=== PATIENT | female | born 1945 | race Caucasian/White ===

== ENCOUNTER → 2016-12-10 | Outpatient (CLI) | payer MEDICARE, OTHER ==
[~2016-12-10] MED LIST: ALLEGRA ALLERGY60 MG PO; ARICEPT PO; CELEBREX50 MG PO; DILTIAZEM HYDR120 M2 PO; DILTIAZEM120 MG PO; FLONASE NASAL S16 GM NS; GABAPENTIN100 MG PO; IFEREX 150 FORT1 CAP PO; MAGNESIUM ELEME30 MG PO; NATURE'S BLEND400 I1 PO; POTASSIUM CH2 MEQ/ML PO; PREMARIN0.3 MG PO; PRILOSEC 20MG20 MG PO; SAVELLA25 MG PO; SYNTHROID0.075 MG PO; VENTOLIN0.09 MG IH; VITAMIN B COMPL1 SGL PO; VITAMIN E 400 U4001 PO
== END ==
LOC: LAB 16:16
DX: D50.9 Iron deficiency anemia, unspecified (principal); R73.02 Impaired glucose tolerance (oral); E03.4 Atrophy of thyroid (acquired); I10 Essential (primary) hypertension; I25.10 Atherosclerotic heart disease of native coronary artery without angina pectoris; D64.89 Other specified anemias; R20.2 Paresthesia of skin

== ENCOUNTER → 2017-01-02 | Outpatient (CLI) | payer MEDICARE, OTHER | LOC: LAB 14:20 | DX: L03.032 Cellulitis of left toe (principal) ==

== ENCOUNTER → 2017-01-18 | Outpatient (CLI) | payer MEDICARE, OTHER | LOC: LAB 11:59 | DX: L03.032 Cellulitis of left toe (principal); B96.5 Pseudomonas (aeruginosa) (mallei) (pseudomallei) as the cause of diseases classified elsewhere ==

== ENCOUNTER → 2017-02-14 | Outpatient (CLI) | payer MEDICARE, OTHER ==
[2016-02-29 14:40] VITALS: BP 191/88
== END ==
LOC: LAB 13:38
DX: I25.10 Atherosclerotic heart disease of native coronary artery without angina pectoris (principal); E61.1 Iron deficiency

== ENCOUNTER → 2017-08-01 | Outpatient (CLI) | payer MEDICARE, OTHER ==
[2016-02-29 14:40] VITALS: BP 191/88
[2017-08-01 16:55] LABS: URINE WBC 0 /hpf (0-3)
[2017-08-01 17:39] LABS: EOS # 0.4 (0.04-0.40); EOS % 4.9 % (1.0-5.0); HEMATOCRIT 42.1 % (37.0-47.0); HEMOGLOBIN 13.7 g/dL (12.5-16.0); MEAN CELL VOLUME 93 fl (78-100); MEAN CORPUSCULAR HEMOGLOBIN 30 pg (27-31); MEAN CORPUSCULAR HGB CONC 33 g/dL (33-37); MEAN PLATELET VOLUME 10.1 fl (7.4-10.4); MONO # 0.7 (0.20-0.80); NEU # 5.5 (1.40-6.50); PLATELET COUNT 223 K/mm3 (130-400); RED BLOOD COUNT 4.52 M/mm3 (4.10-5.30); RED CELL DISTRIBUTION WIDTH 13.7 % (11.5-14.5); WHITE BLOOD COUNT 8.7 K/mm3 (4.8-10.8)
[2017-08-01 17:50] LABS: BUN/CREATININE RATIO 27.3 (6.0-26.0); CALCIUM 9.5 mg/dL (8.4-10.2); POTASSIUM 4.3 mmol/L (3.6-5.0); TOTAL BILIRUBIN 0.5 mg/dL (0.2-1.3); TOTAL PROTEIN 7.2 g/dL (6.3-8.2)
[2017-08-01 18:02] LABS: URINE APPEARANCE CLEAR; URINE BILIRUBIN NEGATIVE (NEGATIVE); URINE BLOOD NEGATIVE (NEGATIVE); URINE COLOR YELLOW; URINE GLUCOSE NEGATIVE (NEGATIVE); URINE KETONE NEGATIVE (NEGATIVE); URINE LEUKOCYTE ESTERASE NEGATIVE (NEGATIVE); URINE NITRATE NEGATIVE (NEGATIVE); URINE PROTEIN(semi-quant) NEGATIVE (NEGATIVE); URINE UROBILINOGEN NORMAL (NORMAL)
[2017-08-01 19:10] LABS: ERYTHROCYTE SEDIMENTATION RATE 18 mm/hr (0-30)
[2017-08-01 23:42] LABS: CREATININE OTHER SOURCE 64 mg/dL (())
== END ==
LOC: LAB 16:25
PROVIDERS: Internal Medicine
DX: I25.10 Atherosclerotic heart disease of native coronary artery without angina pectoris (principal); E61.1 Iron deficiency; R73.02 Impaired glucose tolerance (oral); E03.4 Atrophy of thyroid (acquired); M85.89 Other specified disorders of bone density and structure, multiple sites; Z12.11 Encounter for screening for malignant neoplasm of colon; I10 Essential (primary) hypertension

== ENCOUNTER → 2017-10-23 | Outpatient (CLI) | payer MEDICARE, OTHER ==
[2016-02-29 14:40] VITALS: BP 191/88
[2017-10-23 14:15] LABS: EOS # 0.2 (0.04-0.40); EOS % 2.1 % (1.0-5.0); HEMATOCRIT 41.5 % (37.0-47.0); HEMOGLOBIN 13.7 g/dL (12.5-16.0); LYMPH# 1.9 (1.50-4.00); MEAN CELL VOLUME 94 fl (78-100); MEAN CORPUSCULAR HEMOGLOBIN 31 pg (27-31); MEAN CORPUSCULAR HGB CONC 33 g/dL (33-37); MEAN PLATELET VOLUME 9.8 fl (7.4-10.4); MONO # 0.8 (0.20-0.80); NEU # 5.3 (1.40-6.50); PLATELET COUNT 224 K/mm3 (130-400); RED BLOOD COUNT 4.41 M/mm3 (4.10-5.30); RED CELL DISTRIBUTION WIDTH 13.8 % (11.5-14.5); WHITE BLOOD COUNT 8.2 K/mm3 (4.8-10.8)
[2017-10-23 14:31] LABS: ALBUMIN 4.2 g/dL (3.5-5.0); BUN/CREATININE RATIO 19.2 (6.0-26.0); CALCIUM 9.2 mg/dL (8.4-10.2); TOTAL BILIRUBIN 0.8 mg/dL (0.2-1.3); TOTAL PROTEIN 7.4 g/dL (6.3-8.2)
== END ==
LOC: RAD 14:01
PROVIDERS: Nurse Practitioner Primary Care
DX: R10.0 Acute abdomen (principal)
CPT/HCPCS: Q9967

== ENCOUNTER → 2017-11-27 | Outpatient (CLI) | payer MEDICARE, OTHER ==
[~2017-11-27] VITALS: Ht 160 cm; Wt 92.7 kg
[~2017-11-27] MED LIST changes: +AMLODIPINE BESYL5 MG PO; +FEXOFENADINE H180 M1 PO; +MUPIROCIN22 TP; +ULTRAM50 M1 PO; +VALTREX1 GM PO
[2017-11-27 13:15] LABS: EOS # 0.3 (0.04-0.40); HEMATOCRIT 43.5 % (37.0-47.0); HEMOGLOBIN 14.2 g/dL (12.5-16.0); LYMPH# 1.5 (1.50-4.00); MEAN CELL VOLUME 96 fl (78-100); MEAN CORPUSCULAR HEMOGLOBIN 31 pg (27-31); MEAN CORPUSCULAR HGB CONC 33 g/dL (33-37); MEAN PLATELET VOLUME 9.7 fl (7.4-10.4); MONO # 0.6 (0.20-0.80); NEU # 4.1 (1.40-6.50); PLATELET COUNT 216 K/mm3 (130-400); RED BLOOD COUNT 4.55 M/mm3 (4.10-5.30); RED CELL DISTRIBUTION WIDTH 14.9 % (11.5-14.5); WHITE BLOOD COUNT 6.5 K/mm3 (4.8-10.8)
[2017-11-27 13:24] LABS: ALBUMIN 4.3 g/dL (3.5-5.0); BUN/CREATININE RATIO 18.4 (6.0-26.0); CALCIUM 9.2 mg/dL (8.4-10.2); POTASSIUM 4.2 mmol/L (3.6-5.0); TOTAL BILIRUBIN 0.6 mg/dL (0.2-1.3); TOTAL PROTEIN 7.8 g/dL (6.3-8.2)
[2017-11-27 13:28] LABS: STREP SCREEN NEGATIVE (NEGATIVE)
[2017-11-27 13:31] LABS: PH-URINE 5.5 (5.0 - 8.0); URINE APPEARANCE CLEAR; URINE BILIRUBIN NEGATIVE (NEGATIVE); URINE BLOOD NEGATIVE (NEGATIVE); URINE COLOR YELLOW; URINE GLUCOSE NEGATIVE (NEGATIVE); URINE KETONE NEGATIVE (NEGATIVE); URINE LEUKOCYTE ESTERASE NEGATIVE (NEGATIVE); URINE NITRATE NEGATIVE (NEGATIVE); URINE PROTEIN(semi-quant) NEGATIVE (NEGATIVE); URINE UROBILINOGEN NORMAL (NORMAL)
[2017-11-27 13:39] LABS: URINE WBC 0-1 /hpf (0-3)
[2017-11-27 14:25] VITALS: BP 161/83
== END ==
LOC: AMSURD 12:46 → LAB 12:46
PROVIDERS: Physician Assistant
DX: R53.83 Other fatigue (principal); R30.0 Dysuria; J02.9 Acute pharyngitis, unspecified

== ENCOUNTER → 2017-12-31 | Outpatient (CLI) | payer MEDICARE, OTHER ==
[2017-11-27 14:25] VITALS: BP 161/83
[2017-12-31 15:12] LABS: HEMATOCRIT 41.4 % (37.0-47.0); HEMOGLOBIN 13.5 g/dL (12.5-16.0); MEAN CELL VOLUME 97 fl (78-100); MEAN CORPUSCULAR HEMOGLOBIN 32 pg (27-31); MEAN CORPUSCULAR HGB CONC 33 g/dL (33-37); PLATELET COUNT 188 K/mm3 (130-400); RED BLOOD COUNT 4.28 M/mm3 (4.10-5.30); RED CELL DISTRIBUTION WIDTH 14.1 % (11.5-14.5); WHITE BLOOD COUNT 8.4 K/mm3 (4.8-10.8)
[2017-12-31 15:17] LABS: BUN/CREATININE RATIO 21.7 (6.0-26.0); CALCIUM 9.2 mg/dL (8.4-10.2); POTASSIUM 3.8 mmol/L (3.6-5.0); TOTAL BILIRUBIN 0.4 mg/dL (0.2-1.3); TOTAL PROTEIN 7.3 g/dL (6.3-8.2)
[2017-12-31 15:34] LABS: TROPONIN-I < 0.03 ng/mL (0.00-0.06)
[2017-12-31 15:40] LABS: LYMPHOCYTE 5 % (20-51); MONOCYTE 7 % (3-10); NEUTROPHILS 85 % (42-75)
== END ==
LOC: LAB 14:47
PROVIDERS: Nurse Practitioner Family
DX: R63.5 Abnormal weight gain (principal); R06.02 Shortness of breath

== ENCOUNTER → 2018-07-28 | Outpatient (CLI) | payer MEDICARE, OTHER ==
[2017-11-27 14:25] VITALS: BP 161/83
[2018-07-28 16:40] LABS: URINE WBC 0 /hpf (0-3)
[2018-07-28 17:54] LABS: URINE APPEARANCE CLEAR; URINE BILIRUBIN NEGATIVE (NEGATIVE); URINE BLOOD NEGATIVE (NEGATIVE); URINE COLOR YELLOW; URINE GLUCOSE NEGATIVE (NEGATIVE); URINE KETONE NEGATIVE (NEGATIVE); URINE LEUKOCYTE ESTERASE NEGATIVE (NEGATIVE); URINE NITRATE NEGATIVE (NEGATIVE); URINE PROTEIN(semi-quant) NEGATIVE (NEGATIVE); URINE UROBILINOGEN NORMAL (NORMAL)
[2018-07-28 20:14] LABS: EOS # 0.3 (0.04-0.40); EOS % 3.9 % (1.0-5.0); HEMATOCRIT 40.6 % (37.0-47.0); HEMOGLOBIN 13.3 g/dL (12.5-16.0); LYMPH# 1.8 (1.50-4.00); MEAN CELL VOLUME 96 fl (78-100); MEAN CORPUSCULAR HEMOGLOBIN 31 pg (27-31); MEAN CORPUSCULAR HGB CONC 33 g/dL (33-37); MEAN PLATELET VOLUME 10.8 fl (7.4-10.4); MONO # 0.6 (0.20-0.80); NEU # 5.2 (1.40-6.50); PLATELET COUNT 234 K/mm3 (130-400); RED BLOOD COUNT 4.25 M/mm3 (4.10-5.30); RED CELL DISTRIBUTION WIDTH 13.8 % (11.5-14.5)
[2018-07-28 20:19] LABS: CALCIUM 9.3 mg/dL (8.4-10.2); POTASSIUM 4.4 mmol/L (3.6-5.0); TOTAL BILIRUBIN 0.6 mg/dL (0.2-1.3); TOTAL PROTEIN 6.9 g/dL (6.3-8.2)
[2018-07-28 22:12] LABS: ERYTHROCYTE SEDIMENTATION RATE 9 mm/hr (0-30)
== END ==
LOC: LAB 16:29
PROVIDERS: Internal Medicine
DX: I25.10 Atherosclerotic heart disease of native coronary artery without angina pectoris (principal); E61.1 Iron deficiency; R73.02 Impaired glucose tolerance (oral); E03.9 Hypothyroidism, unspecified; M85.80 Other specified disorders of bone density and structure, unspecified site

== ENCOUNTER → 2018-10-24 | Outpatient (CLI) | payer MEDICARE, OTHER ==
[2017-11-27 14:25] VITALS: BP 161/83
[2018-10-24 14:19] LABS: EOS # 0.4 (0.04-0.40); HEMATOCRIT 40.4 % (37.0-47.0); HEMOGLOBIN 12.9 g/dL (12.5-16.0); LYMPH# 1.7 (1.50-4.00); MEAN CELL VOLUME 95 fl (78-100); MEAN CORPUSCULAR HEMOGLOBIN 30 pg (27-31); MEAN CORPUSCULAR HGB CONC 32 g/dL (33-37); MEAN PLATELET VOLUME 10.7 fl (7.4-10.4); MONO # 0.7 (0.20-0.80); NEU # 4.4 (1.40-6.50); PLATELET COUNT 210 K/mm3 (130-400); RED BLOOD COUNT 4.26 M/mm3 (4.10-5.30); RED CELL DISTRIBUTION WIDTH 13.6 % (11.5-14.5); WHITE BLOOD COUNT 7.2 K/mm3 (4.8-10.8)
== END ==
LOC: LAB 11:51
PROVIDERS: Internal Medicine Pulmonary Disease
DX: J44.9 Chronic obstructive pulmonary disease, unspecified (principal)

== ENCOUNTER → 2019-01-08 | Outpatient (CLI) | payer MEDICARE, OTHER ==
[2017-11-27 14:25] VITALS: BP 161/83
== END ==
LOC: LAB 14:16
PROVIDERS: Student in an Organized Health Care Education/Training Program
DX: E03.9 Hypothyroidism, unspecified (principal)

== ENCOUNTER → 2019-04-20 | Outpatient (CLI) | payer MEDICARE, OTHER ==
[2017-11-27 14:25] VITALS: BP 161/83
[2019-04-20 10:31] LABS: HEMATOCRIT 41.4 % (37.0-47.0); HEMOGLOBIN 13.4 g/dL (12.5-16.0); MEAN PLATELET VOLUME 10.1 fl (7.4-10.4); RED BLOOD COUNT 4.36 M/mm3 (4.10-5.30); RED CELL DISTRIBUTION WIDTH 13.5 % (11.5-14.5); WHITE BLOOD COUNT 6.8 K/mm3 (4.8-10.8)
[2019-04-20 10:49] LABS: ALBUMIN 3.8 g/dL (3.4-4.8); POTASSIUM 4.1 mmol/L (3.5-5.1)
[2019-04-20 10:51] LABS: CALCIUM 9.2 mg/dL (8.3-10.5)
[2019-04-20 10:52] LABS: TOTAL PROTEIN 6.9 g/dL (6.2-8.1)
[2019-04-20 10:54] LABS: TOTAL BILIRUBIN 0.6 mg/dL (0.2-1.2)
== END ==
LOC: LAB 10:10
PROVIDERS: Surgery
DX: Z01.818 Encounter for other preprocedural examination (principal)

== ENCOUNTER → 2019-05-11 | Outpatient (CLI) | payer MEDICARE, OTHER ==
[2017-11-27 14:25] VITALS: BP 161/83
[2019-05-11 13:45] LABS: EOS # 0.6 (0.04-0.40); EOS % 6.5 % (1.0-5.0); HEMATOCRIT 41.3 % (37.0-47.0); HEMOGLOBIN 13.3 g/dL (12.5-16.0); LYMPH# 1.6 (1.50-4.00); MEAN CELL VOLUME 95 fl (78-100); MEAN CORPUSCULAR HEMOGLOBIN 31 pg (27-31); MEAN CORPUSCULAR HGB CONC 32 g/dL (33-37); MEAN PLATELET VOLUME 10.1 fl (7.4-10.4); MONO # 0.8 (0.20-0.80); NEU # 6.1 (1.40-6.50); PLATELET COUNT 214 K/mm3 (130-400); RED BLOOD COUNT 4.33 M/mm3 (4.10-5.30); RED CELL DISTRIBUTION WIDTH 13.8 % (11.5-14.5); WHITE BLOOD COUNT 9.1 K/mm3 (4.8-10.8)
[2019-05-11 13:55] LABS: ALBUMIN 3.6 g/dL (3.4-4.8); POTASSIUM 4.7 mmol/L (3.5-5.1)
[2019-05-11 13:56] LABS: CALCIUM 9.1 mg/dL (8.3-10.5)
[2019-05-11 13:57] LABS: TOTAL PROTEIN 6.4 g/dL (6.2-8.1)
[2019-05-11 13:59] LABS: TOTAL BILIRUBIN 0.4 mg/dL (0.2-1.2)
[2019-05-11 14:09] LABS: URINE APPEARANCE CLEAR; URINE COLOR YELLOW
[2019-05-11 14:10] LABS: URINE BILIRUBIN NEGATIVE (NEGATIVE); URINE BLOOD NEGATIVE (NEGATIVE); URINE GLUCOSE NEGATIVE (NEGATIVE); URINE KETONE NEGATIVE (NEGATIVE); URINE LEUKOCYTE ESTERASE NEGATIVE (NEGATIVE); URINE NITRATE NEGATIVE (NEGATIVE); URINE PROTEIN(semi-quant) NEGATIVE (NEGATIVE); URINE UROBILINOGEN NORMAL (NORMAL)
[2019-05-11 14:48] LABS: ERYTHROCYTE SEDIMENTATION RATE 19 mm/hr (0-30)
== END ==
LOC: LAB 13:36
PROVIDERS: Internal Medicine
DX: C50.411 Malignant neoplasm of upper-outer quadrant of right female breast (principal); I10 Essential (primary) hypertension; I25.10 Atherosclerotic heart disease of native coronary artery without angina pectoris

== ENCOUNTER 2019-08-18 12:09 | Emergency (ER) | payer MEDICARE, OTHER ==
[~2019-08-18 12:09] MED LIST changes: -ARICEPT PO; +ARICEPT10 M1 PO; +FLONASE ALLERG9.9 ML NS; -FLONASE NASAL S16 GM NS; +RT ALBUTEROL CC18 GM IH; -VENTOLIN0.09 MG IH
[2019-08-18 13:06] LABS: EOS # 0.4 (0.04-0.40); EOS % 7.1 % (1.0-5.0); HEMATOCRIT 41.2 % (37.0-47.0); HEMOGLOBIN 13.3 g/dL (12.5-16.0); LYMPH# 0.8 (1.50-4.00); MEAN CELL VOLUME 97 fl (78-100); MEAN CORPUSCULAR HEMOGLOBIN 31 pg (27-31); MEAN CORPUSCULAR HGB CONC 32 g/dL (33-37); MEAN PLATELET VOLUME 10.2 fl (7.4-10.4); MONO # 0.6 (0.20-0.80); NEU # 4.1 (1.40-6.50); PLATELET COUNT 187 K/mm3 (130-400); RED BLOOD COUNT 4.26 M/mm3 (4.10-5.30); RED CELL DISTRIBUTION WIDTH 13.9 % (11.5-14.5)
[2019-08-18] MEDS ORDERED: PREDNISONE10 MG PO (13:41)
[2019-08-18] MEDS ORDERED: ZITHROMAX Z PA250 MG PO (13:41)
[2019-08-18] MEDS ORDERED: IPRATROPIUM BROM3 M1 IH (13:42)
[2019-08-18 14:10] VITALS: BP 156/82
[2019-08-18] MEDS ORDERED: GABAPENTIN100 MG PO (15:55)
[2019-08-18] MEDS ORDERED: SINGULAIR PO (15:55)
[2019-08-18] MEDS ORDERED: BROVANA15 MCG/2 M IH (15:56)
[2019-08-18] MEDS ORDERED: BUDESONIDE0.5 MG/2 M IH (15:56)
[2019-08-18] MEDS ORDERED: ALBUTEROL2.5 MG/3 M IH (15:57)
[2019-08-18] MEDS ORDERED: FERROUS SULFAT325 M4 PO (15:59)
[2019-08-18] MEDS ORDERED: CARDIZEM CD180 M1 PO (15:59)
[2019-08-18] MEDS ORDERED: INCRUSE EL62.5 MCG/A IH (15:59)
[2019-08-18] MEDS ORDERED: PROTONIX20 M1 PO (16:00)
[2019-08-18] MEDS ORDERED: VITAMIN D 400400 IU (16:00)
[2019-08-18] MEDS ORDERED: CLOPIDOGREL PO (16:01)
[2019-08-18] MEDS ORDERED: ASPIRIN E.C. 8181 MG PO (16:01)
[2019-08-18] MEDS ORDERED: ATORVASTATIN CA80 MG PO (16:01)
[2019-08-18] MEDS ORDERED: DAILY VALUE1 EACH PO (16:02)
[2019-08-18] MEDS ORDERED: TYLENOL 325MG325 MG PO (16:02)
[2019-08-18] MEDS ORDERED: ANASTROZOLE1 M1 PO (16:03)
== END 2019-08-18 14:15 | disposition home or self-care (01) ==
LOC: ED 12:09
PROVIDERS: Nurse Practitioner Family
DX: J44.1 Chronic obstructive pulmonary disease with (acute) exacerbation (principal); J18.0 Bronchopneumonia, unspecified organism; I25.10 Atherosclerotic heart disease of native coronary artery without angina pectoris; I10 Essential (primary) hypertension; E07.9 Disorder of thyroid, unspecified; K21.9 Gastro-esophageal reflux disease without esophagitis; Z86.73 Personal history of transient ischemic attack (TIA), and cerebral infarction without residual deficits; Z85.3 Personal history of malignant neoplasm of breast; Z90.49 Acquired absence of other specified parts of digestive tract; Z90.710 Acquired absence of both cervix and uterus; Z98.890 Other specified postprocedural states; Z96.653 Presence of artificial knee joint, bilateral; Z87.891 Personal history of nicotine dependence; Z79.51 Long term (current) use of inhaled steroids
CPT/HCPCS: J2930

== ENCOUNTER → 2019-11-26 | Outpatient (CLI) | payer MEDICARE, OTHER ==
[~2019-11-26] MED LIST changes: +ALBUTEROL2.5 MG/3 M IH; +ANASTROZOLE1 M1 PO; +ASPIRIN E.C. 8181 MG PO; +ATORVASTATIN CA80 MG PO; +BROVANA15 MCG/2 M IH; +BUDESONIDE0.5 MG/2 M IH; +CARDIZEM CD180 M1 PO; +CLOPIDOGREL PO; +DAILY VALUE1 EACH PO; +FERROUS SULFAT325 M4 PO; +INCRUSE EL62.5 MCG/A IH; +IPRATROPIUM BROM3 M1 IH; +PREDNISONE10 MG PO; +PROTONIX20 M1 PO; +SINGULAIR PO; +TYLENOL 325MG325 MG PO; +VITAMIN D 400400 IU; +ZITHROMAX Z PA250 MG PO
[2019-11-26 16:49] LABS: EOS # 0.3 (0.04-0.40); EOS % 3.3 % (1.0-5.0); HEMATOCRIT 42.6 % (37.0-47.0); HEMOGLOBIN 13.9 g/dL (12.5-16.0); LYMPH# 1.1 (1.50-4.00); MEAN CELL VOLUME 97 fl (78-100); MEAN CORPUSCULAR HEMOGLOBIN 32 pg (27-31); MEAN CORPUSCULAR HGB CONC 33 g/dL (33-37); MEAN PLATELET VOLUME 10.6 fl (7.4-10.4); MONO # 0.7 (0.20-0.80); NEU # 5.5 (1.40-6.50); PLATELET COUNT 192 K/mm3 (130-400); RED CELL DISTRIBUTION WIDTH 13.6 % (11.5-14.5); WHITE BLOOD COUNT 7.6 K/mm3 (4.8-10.8)
[2019-11-26 16:59] LABS: ALBUMIN 4.2 g/dL (3.4-4.8); POTASSIUM 4.5 mmol/L (3.5-5.1)
[2019-11-26 17:00] LABS: CALCIUM 9.1 mg/dL (8.3-10.5)
[2019-11-26 17:02] LABS: TOTAL PROTEIN 7.3 g/dL (6.2-8.1)
[2019-11-26 17:03] LABS: TOTAL BILIRUBIN 0.4 mg/dL (0.2-1.2)
[2019-11-26 17:08] LABS: MAGNESIUM 1.96 mg/dL (1.60-2.60)
[2019-11-26 17:58] LABS: ERYTHROCYTE SEDIMENTATION RATE 10 mm/hr (0-30)
== END ==
LOC: LAB 16:22
PROVIDERS: Internal Medicine
DX: I25.10 Atherosclerotic heart disease of native coronary artery without angina pectoris (principal); E61.1 Iron deficiency; K90.9 Intestinal malabsorption, unspecified; E03.9 Hypothyroidism, unspecified; R73.02 Impaired glucose tolerance (oral)

== ENCOUNTER → 2020-03-02 | Outpatient (CLI) | payer MEDICARE, OTHER | LOC: RAD 14:23 | DX: M19.071 Primary osteoarthritis, right ankle and foot (principal); M19.072 Primary osteoarthritis, left ankle and foot ==

== ENCOUNTER → 2020-04-26 | Outpatient (CLI) | payer MEDICARE, OTHER | LOC: LAB 16:46 | DX: R73.02 Impaired glucose tolerance (oral) (principal) ==

== ENCOUNTER → 2020-08-19 | Outpatient (CLI) | payer MEDICARE, OTHER ==
[2020-08-19 14:36] LABS: ALBUMIN 4.2 g/dL (3.4-4.8); POTASSIUM 4.2 mmol/L (3.5-5.1)
[2020-08-19 14:38] LABS: CALCIUM 9.4 mg/dL (8.3-10.5)
[2020-08-19 14:39] LABS: TOTAL PROTEIN 7.5 g/dL (6.2-8.1)
[2020-08-19 14:41] LABS: TOTAL BILIRUBIN 0.5 mg/dL (0.2-1.2)
== END ==
LOC: LAB 14:14
PROVIDERS: Internal Medicine
DX: I25.10 Atherosclerotic heart disease of native coronary artery without angina pectoris (principal); R73.02 Impaired glucose tolerance (oral)

== ENCOUNTER → 2020-11-18 | Outpatient (CLI) | payer MEDICARE, OTHER ==
[2020-11-18 14:50] LABS: EOS # 0.3 (0.04-0.40); EOS % 4.3 % (1.0-5.0); HEMATOCRIT 42.9 % (37.0-47.0); HEMOGLOBIN 13.7 g/dL (12.5-16.0); LYMPH# 0.8 (1.50-4.00); MEAN CELL VOLUME 98 fl (78-100); MEAN CORPUSCULAR HEMOGLOBIN 31 pg (27-31); MEAN CORPUSCULAR HGB CONC 32 g/dL (33-37); MEAN PLATELET VOLUME 10.2 fl (7.4-10.4); MONO # 0.6 (0.20-0.80); NEU # 4.8 (1.40-6.50); PLATELET COUNT 139 K/mm3 (130-400); RED BLOOD COUNT 4.39 M/mm3 (4.10-5.30); RED CELL DISTRIBUTION WIDTH 13.9 % (11.5-14.5); WHITE BLOOD COUNT 6.5 K/mm3 (4.8-10.8)
[2020-11-18 14:57] LABS: ALBUMIN 4.1 g/dL (3.4-4.8); POTASSIUM 4.5 mmol/L (3.5-5.1)
[2020-11-18 14:58] LABS: CALCIUM 9.4 mg/dL (8.3-10.5)
[2020-11-18 14:59] LABS: TOTAL PROTEIN 6.9 g/dL (6.2-8.1)
[2020-11-18 15:01] LABS: TOTAL BILIRUBIN 0.5 mg/dL (0.2-1.2)
== END ==
LOC: LAB 14:34
PROVIDERS: Internal Medicine
DX: E03.4 Atrophy of thyroid (acquired) (principal); I25.10 Atherosclerotic heart disease of native coronary artery without angina pectoris; K90.9 Intestinal malabsorption, unspecified; E11.9 Type 2 diabetes mellitus without complications

== ENCOUNTER → 2021-05-05 | Outpatient (CLI) | payer MEDICARE, OTHER ==
[2021-05-05 15:46] LABS: BASO # 0.03 (0.02-0.10); EOS # 0.31 (0.04-0.40); HEMATOCRIT 41.9 % (37.0-47.0); HEMOGLOBIN 13.7 g/dL (12.5-16.0); LYMPH# 1.23 (1.50-4.00); MEAN CELL VOLUME 97 fl (78-100); MEAN CORPUSCULAR HEMOGLOBIN 32 pg (27-31); MEAN CORPUSCULAR HGB CONC 33 g/dL (33-37); MEAN PLATELET VOLUME 9.6 fl (7.4-10.4); MONO # 0.62 (0.20-0.80); NEU # 5.46 (1.40-6.50); PLATELET COUNT 182 K/mm3 (130-400); RED BLOOD COUNT 4.33 M/mm3 (4.10-5.30); WHITE BLOOD COUNT 7.7 K/mm3 (4.8-10.8)
[2021-05-05 15:55] LABS: ALBUMIN 4.1 g/dL (3.4-4.8); POTASSIUM 4.8 mmol/L (3.5-5.1)
[2021-05-05 15:56] LABS: CALCIUM 9.5 mg/dL (8.3-10.5)
[2021-05-05 15:57] LABS: TOTAL PROTEIN 6.9 g/dL (6.2-8.1)
[2021-05-05 15:59] LABS: TOTAL BILIRUBIN 0.5 mg/dL (0.2-1.2)
== END ==
LOC: LAB 15:28
PROVIDERS: Internal Medicine
DX: E11.9 Type 2 diabetes mellitus without complications (principal); E61.1 Iron deficiency; E03.4 Atrophy of thyroid (acquired)

== ENCOUNTER → 2021-08-24 | Outpatient (CLI) | payer MEDICARE, OTHER ==
[2021-08-24 12:15] LABS: URINE WBC 0 /hpf (0-3)
[2021-08-24 12:44] LABS: BASO # 0.03 K/mm3 (0.02-0.10); EOS # 0.14 K/mm3 (0.04-0.40); EOS % 2.4 % (1.0-5.0); HEMATOCRIT 44.7 % (37.0-47.0); HEMOGLOBIN 14.6 g/dL (12.5-16.0); LYMPH# 0.99 K/mm3 (1.50-4.00); MEAN CELL VOLUME 97 fl (78-100); MEAN CORPUSCULAR HEMOGLOBIN 32 pg (27-31); MEAN CORPUSCULAR HGB CONC 33 g/dL (33-37); MEAN PLATELET VOLUME 9.9 fl (7.4-10.4); MONO # 0.48 K/mm3 (0.20-0.80); NEU # 4.23 K/mm3 (1.40-6.50); PLATELET COUNT 158 K/mm3 (130-400); RED BLOOD COUNT 4.62 M/mm3 (4.10-5.30); WHITE BLOOD COUNT 5.9 K/mm3 (4.8-10.8)
[2021-08-24 12:46] LABS: ALBUMIN 4.1 g/dL (3.4-4.8); POTASSIUM 4.8 mmol/L (3.5-5.1)
[2021-08-24 12:47] LABS: CALCIUM 9.8 mg/dL (8.3-10.5)
[2021-08-24 12:49] LABS: TOTAL PROTEIN 7.2 g/dL (6.2-8.1)
[2021-08-24 12:50] LABS: TOTAL BILIRUBIN 0.7 mg/dL (0.2-1.2)
[2021-08-24 12:55] LABS: MAGNESIUM 2.09 mg/dL (1.60-2.60)
[2021-08-24 13:58] LABS: ERYTHROCYTE SEDIMENTATION RATE 7 mm/hr (0-30)
[2021-08-24 14:28] LABS: URINE APPEARANCE CLEAR; URINE BILIRUBIN NEGATIVE (NEGATIVE); URINE BLOOD NEGATIVE (NEGATIVE); URINE COLOR YELLOW; URINE GLUCOSE NEGATIVE (NEGATIVE); URINE KETONE NEGATIVE (NEGATIVE); URINE LEUKOCYTE ESTERASE NEGATIVE (NEGATIVE); URINE NITRATE NEGATIVE (NEGATIVE); URINE PROTEIN(semi-quant) TRACE mg/dL (NEGATIVE); URINE UROBILINOGEN NORMAL (NORMAL)
== END ==
LOC: LAB 12:05
PROVIDERS: Internal Medicine
DX: I10 Essential (primary) hypertension (principal); K90.9 Intestinal malabsorption, unspecified; E03.4 Atrophy of thyroid (acquired); E11.9 Type 2 diabetes mellitus without complications

== ENCOUNTER → 2021-10-26 | Outpatient (CLI) | payer MEDICARE, OTHER | LOC: RAD 11:59 | DX: M51.36 Other intervertebral disc degeneration, lumbar region (principal); M41.85 Other forms of scoliosis, thoracolumbar region; Z98.1 Arthrodesis status ==

== ENCOUNTER → 2022-01-23 | Outpatient (CLI) | payer MEDICARE, OTHER ==
[2022-01-23 11:50] LABS: URINE WBC 0 /hpf (0-3)
[2022-01-23 12:02] LABS: BASO # 0.04 K/mm3 (0.02-0.10); EOS # 0.27 K/mm3 (0.04-0.40); HEMATOCRIT 43.6 % (37.0-47.0); LYMPH# 0.93 K/mm3 (1.50-4.00); MEAN CELL VOLUME 97 fl (78-100); MEAN CORPUSCULAR HEMOGLOBIN 31 pg (27-31); MEAN CORPUSCULAR HGB CONC 32 g/dL (33-37); MEAN PLATELET VOLUME 10.2 fl (7.4-10.4); MONO # 0.49 K/mm3 (0.20-0.80); NEU # 3.66 K/mm3 (1.40-6.50); PLATELET COUNT 178 K/mm3 (130-400); RED BLOOD COUNT 4.51 M/mm3 (4.10-5.30); RED CELL DISTRIBUTION WIDTH 12.8 % (11.5-14.5); WHITE BLOOD COUNT 5.4 K/mm3 (4.8-10.8)
[2022-01-23 12:08] LABS: ALBUMIN 4.1 g/dL (3.4-4.8); POTASSIUM 4.7 mmol/L (3.5-5.1)
[2022-01-23 12:09] LABS: CALCIUM 9.6 mg/dL (8.3-10.5)
[2022-01-23 12:11] LABS: TOTAL PROTEIN 6.8 g/dL (6.2-8.1)
[2022-01-23 12:13] LABS: TOTAL BILIRUBIN 0.7 mg/dL (0.2-1.2)
[2022-01-23 12:18] LABS: URINE APPEARANCE CLEAR; URINE BILIRUBIN NEGATIVE (NEGATIVE); URINE BLOOD NEGATIVE (NEGATIVE); URINE COLOR YELLOW; URINE GLUCOSE NEGATIVE (NEGATIVE); URINE KETONE NEGATIVE (NEGATIVE); URINE LEUKOCYTE ESTERASE NEGATIVE (NEGATIVE); URINE NITRATE NEGATIVE (NEGATIVE); URINE PROTEIN(semi-quant) NEGATIVE (NEGATIVE); URINE UROBILINOGEN NORMAL (NORMAL)
[2022-01-23 13:15] LABS: ERYTHROCYTE SEDIMENTATION RATE 12 mm/hr (0-30)
== END ==
LOC: LAB 11:32
PROVIDERS: Internal Medicine
DX: E03.4 Atrophy of thyroid (acquired) (principal); I10 Essential (primary) hypertension; I25.10 Atherosclerotic heart disease of native coronary artery without angina pectoris; E11.9 Type 2 diabetes mellitus without complications; K90.9 Intestinal malabsorption, unspecified

== ENCOUNTER → 2022-09-25 | Outpatient (CLI) | payer MEDICARE, OTHER ==
[2022-09-25 12:11] LABS: BASO # 0.03 K/mm3 (0.02-0.10); EOS # 0.29 K/mm3 (0.04-0.40); EOS % 4.8 % (1.0-5.0); HEMATOCRIT 40.9 % (37.0-47.0); HEMOGLOBIN 13.5 g/dL (12.5-16.0); LYMPH# 1.01 K/mm3 (1.50-4.00); MEAN CELL VOLUME 96 fl (78-100); MEAN CORPUSCULAR HEMOGLOBIN 32 pg (27-31); MEAN CORPUSCULAR HGB CONC 33 g/dL (33-37); MEAN PLATELET VOLUME 10.1 fl (7.4-10.4); MONO # 0.42 K/mm3 (0.20-0.80); PLATELET COUNT 175 K/mm3 (130-400); RED BLOOD COUNT 4.27 M/mm3 (4.10-5.30); RED CELL DISTRIBUTION WIDTH 12.8 % (11.5-14.5); WHITE BLOOD COUNT 6.1 K/mm3 (4.8-10.8)
[2022-09-25 12:16] LABS: ALBUMIN 3.9 g/dL (3.4-4.8); POTASSIUM 4.5 mmol/L (3.5-5.1)
[2022-09-25 12:17] LABS: CALCIUM 9.4 mg/dL (8.3-10.5)
[2022-09-25 12:19] LABS: TOTAL PROTEIN 6.5 g/dL (6.2-8.1)
[2022-09-25 12:21] LABS: TOTAL BILIRUBIN 0.7 mg/dL (0.2-1.2)
== END ==
LOC: LAB 11:52
PROVIDERS: Internal Medicine
DX: J45.909 Unspecified asthma, uncomplicated (principal); J44.9 Chronic obstructive pulmonary disease, unspecified; I25.10 Atherosclerotic heart disease of native coronary artery without angina pectoris; G47.30 Sleep apnea, unspecified; G62.9 Polyneuropathy, unspecified; E11.9 Type 2 diabetes mellitus without complications; K90.9 Intestinal malabsorption, unspecified

== ENCOUNTER → 2023-11-08 | Outpatient (CLI) | payer MEDICARE, OTHER ==
[2023-11-08 12:45] LABS: BASO # 0.04 K/mm3 (0.02-0.10); EOS # 0.24 K/mm3 (0.04-0.40); EOS % 3.2 % (1.0-5.0); HEMATOCRIT 43.9 % (37.0-47.0); HEMOGLOBIN 14.1 g/dL (12.5-16.0); LYMPH# 1.01 K/mm3 (1.50-4.00); MEAN CELL VOLUME 96 fl (78-100); MEAN CORPUSCULAR HEMOGLOBIN 31 pg (27-31); MEAN CORPUSCULAR HGB CONC 32 g/dL (33-37); MEAN PLATELET VOLUME 10.3 fl (7.4-10.4); MONO # 0.46 K/mm3 (0.20-0.80); NEU # 5.64 K/mm3 (1.40-6.50); PLATELET COUNT 155 K/mm3 (130-400); RED BLOOD COUNT 4.56 M/mm3 (4.10-5.30); RED CELL DISTRIBUTION WIDTH 13.2 % (11.5-14.5); WHITE BLOOD COUNT 7.4 K/mm3 (4.8-10.8)
[2023-11-08 12:54] LABS: ALBUMIN 4.2 g/dL (3.4-4.8)
[2023-11-08 12:55] LABS: CALCIUM 9.4 mg/dL (8.3-10.5)
[2023-11-08 12:59] LABS: TOTAL BILIRUBIN 0.7 mg/dL (0.2-1.2)
[2023-11-08 13:03] LABS: MAGNESIUM 1.91 mg/dL (1.60-2.60)
== END ==
LOC: LAB 12:24
PROVIDERS: Internal Medicine
DX: I10 Essential (primary) hypertension (principal); E11.9 Type 2 diabetes mellitus without complications

== ENCOUNTER → 2024-03-17 | Outpatient (CLI) | payer MEDICARE, OTHER ==
[~2024-03-17] MED LIST changes: +CALCIUM500 M1 PO; +CELEBREX 200MG200 MG PO; -CELEBREX50 MG PO; +LYVISPAH10 MG PO; +MAGNESIUM OXID200 MG PO; +PROAIR HFA0.09 MG/AC IH; +PROLIA60 MG/ML SC; +VALACYCLOVIR500 MG PO; +VITAMIN C500 M7 PO; -VITAMIN D 400400 IU; +VITAMIN D350 MCG PO
[2024-05-05 10:30] LABS: BASO # 0.02 K/mm3 (0.02-0.10); EOS # 0.27 K/mm3 (0.04-0.40); EOS % 3.9 % (1.0-5.0); HEMATOCRIT 42.1 % (37.0-47.0); HEMOGLOBIN 13.5 g/dL (12.5-16.0); LYMPH# 1.26 K/mm3 (1.50-4.00); MEAN CELL VOLUME 97 fl (78-100); MEAN CORPUSCULAR HEMOGLOBIN 31 pg (27-31); MEAN CORPUSCULAR HGB CONC 32 g/dL (33-37); MEAN PLATELET VOLUME 10.4 fl (7.4-10.4); NEU # 4.93 K/mm3 (1.40-6.50); PLATELET COUNT 149 K/mm3 (130-400); RED BLOOD COUNT 4.35 M/mm3 (4.10-5.30); RED CELL DISTRIBUTION WIDTH 13.4 % (11.5-14.5)
[2024-05-05 10:33] LABS: CALCIUM 9.5 mg/dL (8.3-10.5); MAGNESIUM 2.1 mg/dL (1.60-2.60); TOTAL BILIRUBIN 0.4 mg/dL (0.2-1.2); TOTAL PROTEIN 6.3 g/dL (6.2-8.1)
== END ==
LOC: LAB 14:55
PROVIDERS: Internal Medicine
DX: I10 Essential (primary) hypertension (principal)

== ENCOUNTER → 2024-03-26 | Outpatient (CLI) | payer MEDICARE, OTHER ==
[~2024-03-26] VITALS: Ht 160 cm; Wt 95.7 kg
[~2024-03-26] MED LIST changes: +Denosumab 60 MG/ML SYRINGE SQ SCH
[2024-03-26 13:23] VITALS: BP 150/85
== END ==
LOC: EDSTATUS 11:28 → AMSURD 13:06
DX: M81.0 Age-related osteoporosis without current pathological fracture (principal)
CPT/HCPCS: J0897

== ENCOUNTER → 2024-05-29 | Outpatient (CLI) | payer MEDICARE, OTHER ==
[~2024-05-29] MED LIST changes: -Denosumab 60 MG/ML SYRINGE SQ SCH
== END ==
LOC: LAB 11:22
DX: E03.4 Atrophy of thyroid (acquired) (principal); I25.10 Atherosclerotic heart disease of native coronary artery without angina pectoris; E11.9 Type 2 diabetes mellitus without complications

== ENCOUNTER → 2024-09-28 | Outpatient (CLI) | payer MEDICARE, OTHER ==
[~2024-09-28] VITALS: Ht 160 cm; Wt 95.7 kg
[~2024-09-28] MED LIST changes: +COZAAR25 M1 PO; +Denosumab 60 MG/ML SYRINGE SQ ONE
[2024-09-28 10:51] VITALS: BP 138/84
== END ==
LOC: AMSURD 10:36
DX: M81.0 Age-related osteoporosis without current pathological fracture (principal)
CPT/HCPCS: J0897

== ENCOUNTER → 2024-11-10 | Outpatient (CLI) | payer MEDICARE, OTHER ==
[~2024-11-10] MED LIST changes: -Denosumab 60 MG/ML SYRINGE SQ ONE
[2024-11-10 15:54] LABS: BASO # 0.02 K/mm3 (0.02-0.10); EOS # 0.26 K/mm3 (0.04-0.40); EOS % 3.9 % (1.0-5.0); HEMATOCRIT 41.9 % (37.0-47.0); HEMOGLOBIN 13.3 g/dL (12.5-16.0); LYMPH# 1.16 K/mm3 (1.50-4.00); MEAN CELL VOLUME 99 fl (78-100); MEAN CORPUSCULAR HEMOGLOBIN 31 pg (27-31); MEAN CORPUSCULAR HGB CONC 32 g/dL (33-37); MEAN PLATELET VOLUME 9.6 fl (7.4-10.4); MONO # 0.49 K/mm3 (0.20-0.80); NEU # 4.77 K/mm3 (1.40-6.50); PLATELET COUNT 181 K/mm3 (130-400); RED BLOOD COUNT 4.23 M/mm3 (4.10-5.30); WHITE BLOOD COUNT 6.7 K/mm3 (4.8-10.8)
[2024-11-10 15:59] LABS: ALBUMIN 4.2 g/dL (3.4-4.8)
[2024-11-10 16:00] LABS: CALCIUM 9.4 mg/dL (8.3-10.5)
[2024-11-10 16:01] LABS: TOTAL PROTEIN 7.4 g/dL (6.2-8.1)
[2024-11-10 16:03] LABS: TOTAL BILIRUBIN 0.4 mg/dL (0.2-1.2)
[2024-11-10 16:08] LABS: MAGNESIUM 1.95 mg/dL (1.60-2.60)
== END ==
LOC: LAB 15:36
PROVIDERS: Internal Medicine
DX: E03.4 Atrophy of thyroid (acquired) (principal); I25.10 Atherosclerotic heart disease of native coronary artery without angina pectoris; E11.9 Type 2 diabetes mellitus without complications; I10 Essential (primary) hypertension